=== PATIENT | male | born 2000 | race Caucasian/White ===

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

== ENCOUNTER 2019-08-30 06:04 | Emergency (ER) | payer OTHER ==
[~2019-08-30] VITALS: Ht 188 cm; Wt 81.7 kg
[~2019-08-30 06:04] MED LIST changes: +AUGMENTIN 875-1 EACH PO; +TRAMADOL 50 MG50 MG PO
[2019-08-30] MEDS ORDERED: GENTAK5 ML TOP (07:25)
[2019-08-30 07:43] VITALS: BP 117/75
== END 2019-08-30 07:43 | disposition home or self-care (01) ==
LOC: M.ERS 06:04
DX: S05.02XA Injury of conjunctiva and corneal abrasion without foreign body, left eye, initial encounter (principal); F17.210 Nicotine dependence, cigarettes, uncomplicated; W22.8XXA Striking against or struck by other objects, initial encounter; Y93.89 Activity, other specified; Y92.89 Other specified places as the place of occurrence of the external cause; Y99.8 Other external cause status